=== PATIENT | male | born 1980 | race Caucasian/White ===

== ENCOUNTER 2021-09-25 14:20 | Inpatient (IN) | payer OTHER ==
[2021-09-25] VITALS (200 sets, daily range): BP systolic 97–116; BP diastolic 58–69; PULSE 90–105; TEMP 36.4; O2SAT 72–100
[~2021-09-25] VITALS: Ht 172.7 cm; Wt 89.0 kg
[2021-09-25 14:43] LABS: HEMATOCRIT 49.9 % (42.0-52.0); HEMOGLOBIN 16.7 g/dl (13.5-18.0); MEAN CELL VOLUME 95 fl (80.0-100.0); MEAN CORPUSCULAR HEMOGLOBIN 32 pg (27-31); MEAN CORPUSCULAR HGB CONC 34 g/dl (33.0-37.0); MEAN PLATELET VOLUME 11.3 fl (7.4-10.4); PLATELET COUNT 240 K/mm3 (130-400); RED BLOOD COUNT 5.28 M/mm3 (4.20-5.60); REDCELL DISTRIBUTION WIDTH-CV 11.7 % (11.5-14.5)
[2021-09-25 15:05] LABS: BAND 5 % (0-10); LYMPHOCYTE 9 % (20.0-51.0); NEUTROPHILS 78 % (42.0-75.2)
[2021-09-25 15:08] LABS: COLLECTION METHOD CLEAN CATCH
[2021-09-25 15:08] LABS: PLATELET ESTIMATE NORMAL (NORMAL)
[2021-09-25 15:14] LABS: MUCOUS Present (NOT PRESENT); PH 5 (5-8); SQUAMOUS EPITHELIAL 0-2 /hpf (0-10); URINE APPEARANCE Hazy (CLEAR/HAZY); URINE BACTERIA None Seen (NONE SEEN); URINE BILIRUBIN Negative (NEGATIVE); URINE BLOOD 2+ (NEGATIVE); URINE COLOR Yellow (YELLOW); URINE GLUCOSE 3+ (NEGATIVE); URINE KETONE 2+ (NEGATIVE); URINE LEUKOCYTE ESTERASE Negative (NEGATIVE); URINE NITRATE Negative (NEGATIVE); URINE PROTEIN(semi-quant) 2+ (NEGATIVE); URINE RBC 0-2 /hpf (0-2); URINE UROBILINOGEN Negative (NEGATIVE)
[2021-09-25 15:22] LABS: TRICYCLIC ANTIDEPRESS URINE NEGATIVE
[2021-09-25 15:59] LABS: ALANINE AMINOTRANSFERASE 57 U/L (0-55); ALBUMIN 2.7 gm/dL (3.5-5.0); ALKALINE PHOSPHATASE 55 U/L (40-150); AST,SGOT 26 U/L (5-34); BILIRUBIN,TOTAL 0.2 mg/dL (0.2-1.2); BLOOD UREA NITROGEN 38 mg/dL (9-21); CHLORIDE 103 mmol/L (98-107); CREATINE KINASE 33 U/L (30-200); CREATININE, serum 2.81 mg/dL (0.72-1.25); LIPASE 350 U/L (8-78); SODIUM 133 mmol/L (136-145); TOTAL PROTEIN 6.3 gm/dL (6.2-8.1)
[2021-09-25 16:03] LABS: CARBON DIOXIDE < 5 mmol/L (22-29); GLUCOSE 786 mg/dL (70-99); POTASSIUM 5.9 mmol/L (3.5-4.5)
[2021-09-25 16:19] LABS: TROPONIN-I 0.011 ng/mL (0.00-0.033); TSH w REFLEX 1.014 uIU/mL (0.350-4.940)
--- NOTE | 2021-09-25 17:08 | NUR ---
BG MEASURED AT 515 UPON ARRIVAL. INSULIN GTT PLACED ON HOLD D/T 200 POINT DROP IN 45 MINUTES. WILL RECHECK BG IN 30 MINUTES
[2021-09-25 17:17] LABS: MAGNESIUM 2.8 mg/dL (1.6-2.6); PHOSPHOROUS 5.8 mg/dL (2.3-4.7)
[2021-09-25 17:50] LABS: ARTERIAL BLD GAS O2 SATURATION 96.7 % (92-100); ARTERIAL BLD GAS TCO2 CT 3.2; ARTERIAL BLOOD GAS HCO3 2.7 meq/L (22-26); ARTERIAL BLOOD GAS PO2 90.2 mmHg (80-100); ARTERIAL BLOOD GAS pH 6.85 (7.35-7.45)
[2021-09-25 19:31] LABS: BLOOD UREA NITROGEN 41 mg/dL (9-21); CALCIUM 7.5 mg/dL (8.4-10.2); CHLORIDE 109 mmol/L (98-107); POTASSIUM 5.7 mmol/L (3.5-4.5); SODIUM 135 mmol/L (136-145)
[2021-09-25 19:43] LABS: GLUCOSE 586 mg/dL (70-99)
[2021-09-25 19:44] LABS: CARBON DIOXIDE < 5 mmol/L (22-29); CREATININE, serum 2.92 mg/dL (0.72-1.25)
[2021-09-25 19:45] LABS: ANION GAP 24 mmol/L (7-16)
[2021-09-25 21:53] LABS: BLOOD UREA NITROGEN 46 mg/dL (9-21); CALCIUM 8.1 mg/dL (8.4-10.2); CHLORIDE 111 mmol/L (98-107); CREATININE, serum 3.09 mg/dL (0.72-1.25); POTASSIUM 5.3 mmol/L (3.5-4.5); SODIUM 136 mmol/L (136-145)
[2021-09-25 21:56] LABS: CARBON DIOXIDE < 5 mmol/L (22-29); GLUCOSE 490 mg/dL (70-99)
[2021-09-25 22:49] LABS: ARTERIAL BLOOD GAS pH 6.99 (7.35-7.45)
[2021-09-25 22:50] LABS: ARTERIAL BLD GAS O2 SATURATION 95.5 % (92-100); ARTERIAL BLD GAS TCO2 CT 4.3; ARTERIAL BLOOD GAS BASE EXCESS -26.1 (-2-2); ARTERIAL BLOOD GAS HCO3 3.8 meq/L (22-26); ARTERIAL BLOOD GAS PCO2 16.4 mmHg (35-45); ARTERIAL BLOOD GAS PO2 74.2 mmHg (80-100)
[2021-09-25 23:13] LABS: BLOOD UREA NITROGEN 45 mg/dL (9-21); CALCIUM 7.5 mg/dL (8.4-10.2); CHLORIDE 112 mmol/L (98-107); CREATININE, serum 3.13 mg/dL (0.72-1.25); POTASSIUM 4.8 mmol/L (3.5-4.5); SODIUM 137 mmol/L (136-145)
[2021-09-25 23:15] LABS: CARBON DIOXIDE < 5 mmol/L (22-29); GLUCOSE 428 mg/dL (70-99)
[2021-09-26] VITALS (657 sets, daily range): BP systolic 104–165; BP diastolic 60–107; PULSE 96–134; TEMP 37.7; O2SAT 79–99
[2021-09-26 01:22] LABS: CALCIUM 8.2 mg/dL (8.4-10.2); CREATININE, serum 3.16 mg/dL (0.72-1.25); POTASSIUM 4.3 mmol/L (3.5-4.5)
[2021-09-26] MEDS ORDERED: GLUCOPHAGE500 MG/TAB PO (02:07)
[2021-09-26 03:26] LABS: CALCIUM 8.4 mg/dL (8.4-10.2); CREATININE, serum 2.94 mg/dL (0.72-1.25); POTASSIUM 3.9 mmol/L (3.5-4.5)
[2021-09-26 04:17] LABS: ARTERIAL BLD GAS O2 SATURATION 93.9 % (92-100); ARTERIAL BLD GAS TCO2 CT 7.6; ARTERIAL BLOOD GAS BASE EXCESS -19.1 (-2-2)
[2021-09-26 04:23] LABS: ARTERIAL BLOOD GAS pH 7.18 (7.35-7.45)
[2021-09-26 05:00] LABS: BASO % 0.1 % (0.0-2.0); GRAN # 5.7 K/mm3 (1.4-6.5); GRAN % 74.9 % (42.2-75.2); HEMATOCRIT 39.7 % (42.0-52.0); LYMPH # 0.9 K/mm3 (1.2-3.4); LYMPH % 11.2 % (20.0-51.0); MEAN CELL VOLUME 89 fl (80.0-100.0); MEAN CORPUSCULAR HEMOGLOBIN 31 pg (27-31); MEAN CORPUSCULAR HGB CONC 35 g/dl (33.0-37.0); MEAN PLATELET VOLUME 10.3 fl (7.4-10.4); MONO # 0.9 K/mm3 (0.1-0.6); MONO % 12.4 % (1.7-9.3); PLATELET COUNT 155 K/mm3 (130-400); RED BLOOD COUNT 4.45 M/mm3 (4.20-5.60); REDCELL DISTRIBUTION WIDTH-CV 11.7 % (11.5-14.5)
[2021-09-26 05:19] LABS: ALBUMIN 2.6 gm/dL (3.5-5.0); BILIRUBIN,TOTAL 0.2 mg/dL (0.2-1.2); CALCIUM 8.2 mg/dL (8.4-10.2); CREATININE, serum 2.78 mg/dL (0.72-1.25); POTASSIUM 3.4 mmol/L (3.5-4.5); TOTAL PROTEIN 5.8 gm/dL (6.2-8.1)
--- NOTE | 2021-09-26 07:00 | NUR ---
PT became very aggitated and started to get out of bed, pulling at his catheter and screaming. Licha was called and orders for Precedex was placed. reorientation to ICU was not successful.
[2021-09-26 07:46] LABS: ANION GAP 19 mmol/L (7-16); BLOOD UREA NITROGEN 42 mg/dL (9-21); CALCIUM 7.9 mg/dL (8.4-10.2); CHLORIDE 115 mmol/L (98-107); CREATININE, serum 2.51 mg/dL (0.72-1.25); GLUCOSE 144 mg/dL (70-99); MAGNESIUM 1.8 mg/dL (1.6-2.6); POTASSIUM 3.3 mmol/L (3.5-4.5); SODIUM 143 mmol/L (136-145)
--- NOTE | 2021-09-26 08:00 | NUR ---
PT is resting on his right side, calm and easy to arouse. When woken, the pt starts to moan and pull arms away when trying to reach for lines to give meds. Pt is unable to answer questions and states " press snooze on my alarm clock".
[2021-09-26 08:07] LABS: CARBON DIOXIDE 9 mmol/L (22-29); PHOSPHOROUS < 0.7 mg/dL (2.3-4.7)
--- NOTE | 2021-09-26 09:28 | NUR ---
The patient has altered mental status and is wearing mits. JULIA contacted the patient's father, Zia (ph#[phone]), to complete intake. The patient lives alone in [place]. 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 Zia reports that the patient is independent with ADLs and does not have any DME. He is unsure if the patient has a PCP and he does not think the patient has a DPOA-HC. He reports that the patient is not and that the patient has four children, one of them is over the age 18 and that is Xavier So. Zia provided JULIA with Xavier's phone number [phone]. JULIA informed Zia how Xavier would be the patient's legal next of kin. Zia verbalized understanding. He would still like to be kept updated while the patient is here. Zia reports that the patient's mother, Frida (ph#[phone]), is also still alive. JULIA attempted to contact Xavier. JULIA left him a voicemail. JULIA to continue to monitor.
[2021-09-26 09:46] LABS: CALCIUM 8.4 mg/dL (8.4-10.2); CREATININE, serum 2.52 mg/dL (0.72-1.25); POTASSIUM 3.4 mmol/L (3.5-4.5)
--- NOTE | 2021-09-26 11:07 | NUR ---
Patients mother and step father here to visit with nursing staff. They just needed to see a face. Questions answered the best to my ability. I did recommend that they call the primary nurse to answer the more techincal information. At this time his numbers were good and that Dr. Stewart was managing both his DKA and COVID. They requested and recieved his belongings. This included a pair of jeans with cell phone and wallet; socks and underware. Family took these belongings home with them. They did state that his sister is a Type I diabetic and that he was a Type II but not well managed. He only took his meds when he felt like it. According to mother he is stubborn and did not follow up with the doctor. His primary MD was Dr. Brett Bhagat and he has not had a primary since Dr. Bhagat. Will pass this information on to his primary nurse. No other questions at this time
[2021-09-26 12:29] LABS: ANION GAP 17 mmol/L (7-16); BLOOD UREA NITROGEN 41 mg/dL (9-21); CALCIUM 8.2 mg/dL (8.4-10.2); CHLORIDE 116 mmol/L (98-107); CREATININE, serum 2.34 mg/dL (0.72-1.25); GLUCOSE 151 mg/dL (70-99); POTASSIUM 3.1 mmol/L (3.5-4.5); SODIUM 142 mmol/L (136-145)
[2021-09-26 12:35] LABS: PHOSPHOROUS < 0.7 mg/dL (2.3-4.7)
[2021-09-26 12:37] LABS: CARBON DIOXIDE 9 mmol/L (22-29)
--- NOTE | 2021-09-26 15:00 | NUR ---
Recieved call from pt mother, tyson Leung states that the pt is a heavy drinker. No known HX of drinking for this pt. Hospitalist was notified and started CIWA scoring on pt hourly.
[2021-09-26 16:26] LABS: CALCIUM 8.3 mg/dL (8.4-10.2); CREATININE, serum 2.11 mg/dL (0.72-1.25); POTASSIUM 3.2 mmol/L (3.5-4.5)
[2021-09-26 21:19] LABS: CALCIUM 8.3 mg/dL (8.4-10.2); CREATININE, serum 1.84 mg/dL (0.72-1.25)
[2021-09-26 21:23] LABS: POTASSIUM 2.9 mmol/L (3.5-4.5)
--- NOTE | 2021-09-26 22:30 | NUR ---
FSBS 115, PER KISHA ANGELES DECREASE INSULIN DRIP TO 1 UN/HR, CONTINUE Q1HR FS.
[2021-09-27] VITALS (678 sets, daily range): BP systolic 65–134; BP diastolic 42–82; PULSE 76–107; TEMP 97.7–99.5; O2SAT 78–100
[2021-09-27 00:49] LABS: CALCIUM 8.5 mg/dL (8.4-10.2); CREATININE, serum 1.78 mg/dL (0.72-1.25); POTASSIUM 3.6 mmol/L (3.5-4.5)
[2021-09-27 04:48] LABS: ANION GAP 12 mmol/L (7-16); BLOOD UREA NITROGEN 37 mg/dL (9-21); CALCIUM 8.2 mg/dL (8.4-10.2); CHLORIDE 118 mmol/L (98-107); CREATININE, serum 1.65 mg/dL (0.72-1.25); GLUCOSE 175 mg/dL (70-99); MAGNESIUM 2.1 mg/dL (1.6-2.6); POTASSIUM 3.6 mmol/L (3.5-4.5); SODIUM 144 mmol/L (136-145)
[2021-09-27 04:51] LABS: CARBON DIOXIDE 14 mmol/L (22-29); PHOSPHOROUS < 0.7 mg/dL (2.3-4.7)
[2021-09-27 04:53] LABS: HEMOGLOBIN 12.2 g/dl (13.5-18.0); MEAN CELL VOLUME 88 fl (80.0-100.0); MEAN CORPUSCULAR HEMOGLOBIN 32 pg (27-31); MEAN CORPUSCULAR HGB CONC 36 g/dl (33.0-37.0); MEAN PLATELET VOLUME 10.6 fl (7.4-10.4); PLATELET COUNT 154 K/mm3 (130-400); RED BLOOD COUNT 3.86 M/mm3 (4.20-5.60); REDCELL DISTRIBUTION WIDTH-CV 12.3 % (11.5-14.5)
[2021-09-27 05:35] LABS: ANISOCYTOSIS 1+; BAND 15 % (0-10); EOSINOPHIL 1 % (0-4); LYMPHOCYTE 7 % (20.0-51.0); NEUTROPHILS 64 % (42.0-75.2)
--- NOTE | 2021-09-27 06:53 | NUR ---
PRECEDEX ON STANDBY FOR LOW BP.
--- NOTE | 2021-09-27 07:39 | NUR ---
CALL TO TELE ICU FOR PT'S SBP UNDER 90 FOR THE LAST HOUR. ORDER RECEIVED FOR 500ML NS BOLUS. INITIATED.
--- NOTE | 2021-09-27 08:00 | NUR ---
Parveen becomes very confused and tries to exit his bed stating " I have to go" while pulling at lines and tubes. Reorientation to ICU is unseccessful and Ativan is needed to keep him calm.
--- NOTE | 2021-09-27 11:00 | NUR ---
Dr. Stewart put in orders for intubation due to right lung Covid pneumonia and aspiration pneumonia. AA bedside, Prop, fent, and succinycholine administered for sedation. 1114 Time out: Confirmed PT by name on wrist band and procedure is intubation with ART line placment 1114 pre oxygenation 1116 Intubation was uneventful, one attempt. ETT 8.0 24 Teeth and secured with commercial device. VSS- 122/63 98% ON 50% FIO2, RR 24, P8, TV 500 PT started on maintenance meds PROP and FENT. 1150 XRAY read by Manuel and ETT placement good.
[2021-09-27 12:46] LABS: ARTERIAL BLD GAS TCO2 CT 17.2; ARTERIAL BLOOD GAS BASE EXCESS -10.5 (-2-2); ARTERIAL BLOOD GAS HCO3 16.1 meq/L (22-26); ARTERIAL BLOOD GAS PCO2 38.1 mmHg (35-45); ARTERIAL BLOOD GAS pH 7.24 (7.35-7.45)
[2021-09-27 12:48] LABS: ARTERIAL BLOOD GAS PO2 227.8 mmHg (80-100)
[2021-09-27 13:42] LABS: CALCIUM 7.4 mg/dL (8.4-10.2); CREATININE, serum 1.32 mg/dL (0.72-1.25)
[2021-09-27 16:33] LABS: CREATININE, serum 1.2 mg/dL (0.72-1.25)
--- NOTE | 2021-09-27 16:37 | NUR ---
Patient has been intubated. JULIA contacted patient's father, Zia who advised he has been keeping patient's son, Xavier updated but isn't sure if Xavier is aware patient is intubated. Zia verbalized understanding that Xavier is legal next of kin and would be a decision maker for patient. JULIA then contacted patient's son Xavier to provide update. Xavier verbalized understanding that he is legal next of kin for patient and would be a decision maker for patient if patient is unable to make his own medical decisions.
--- NOTE | 2021-09-27 17:00 | NUR ---
NO SEDATION VACATION DUE TO AMS, HYPOTENSION.
[2021-09-27 17:53] LABS: ARTERIAL BLD GAS O2 SATURATION 98.7 % (92-100); ARTERIAL BLD GAS TCO2 CT 13.7; ARTERIAL BLOOD GAS BASE EXCESS -11.2 (-2-2); ARTERIAL BLOOD GAS HCO3 12.9 meq/L (22-26); ARTERIAL BLOOD GAS PCO2 24.9 mmHg (35-45); ARTERIAL BLOOD GAS pH 7.33 (7.35-7.45)
[2021-09-27 17:54] LABS: ARTERIAL BLOOD GAS PO2 132.6 mmHg (80-100)
[2021-09-27 20:43] LABS: CALCIUM 6.8 mg/dL (8.4-10.2); CREATININE, serum 1.15 mg/dL (0.72-1.25); POTASSIUM 4.2 mmol/L (3.5-4.5)
[2021-09-28] VITALS (653 sets, daily range): BP systolic 86–153; BP diastolic 63–95; PULSE 81–110; TEMP 98.8–99.5; O2SAT 76–100
[2021-09-28 05:26] LABS: GRAN # 4.5 K/mm3 (1.4-6.5); HEMOGLOBIN 11.8 g/dl (13.5-18.0); LYMPH # 0.6 K/mm3 (1.2-3.4); LYMPH % 9.3 % (20.0-51.0); MEAN CELL VOLUME 90 fl (80.0-100.0); MEAN CORPUSCULAR HEMOGLOBIN 32 pg (27-31); MEAN CORPUSCULAR HGB CONC 35 g/dl (33.0-37.0); MEAN PLATELET VOLUME 10.6 fl (7.4-10.4); MONO # 0.9 K/mm3 (0.1-0.6); MONO % 15.2 % (1.7-9.3); PLATELET COUNT 160 K/mm3 (130-400); RED BLOOD COUNT 3.72 M/mm3 (4.20-5.60); REDCELL DISTRIBUTION WIDTH-CV 13.2 % (11.5-14.5)
[2021-09-28 05:30] LABS: HEMATOCRIT 33.5 % (42.0-52.0)
[2021-09-28 05:47] LABS: CALCIUM 7.1 mg/dL (8.4-10.2); CREATININE, serum 1.04 mg/dL (0.72-1.25); MAGNESIUM 1.9 mg/dL (1.6-2.6); PHOSPHOROUS 1.9 mg/dL (2.3-4.7); POTASSIUM 3.5 mmol/L (3.5-4.5)
[2021-09-28 06:16] LABS: ARTERIAL BLD GAS O2 SATURATION 99.1 % (92-100); ARTERIAL BLD GAS TCO2 CT 12.3; ARTERIAL BLOOD GAS BASE EXCESS -12.6 (-2-2); ARTERIAL BLOOD GAS HCO3 11.6 meq/L (22-26); ARTERIAL BLOOD GAS pH 7.32 (7.35-7.45)
[2021-09-28 07:05] LABS: ARTERIAL BLOOD GAS PO2 198.7 mmHg (80-100)
--- NOTE | 2021-09-28 07:30 | NUR ---
REPORT RECEIVED FROM FERNANDO CARLSON. PATIENT RESTING SEDATED IN BED ON THE VENT. ALL LINES, TUBES, GTTS AND VENT SETTINGS REVIEWED.
--- NOTE | 2021-09-28 07:32 | NUR ---
PT HAS NOT BEEN INTUBATED FOR MORE THAN 24 HOURS THEREFORE NO WEAN TRIAL HAS BEEN DONE.
--- NOTE | 2021-09-28 20:55 | NUR ---
This RN at patient's bedside performing 2000 assessment and evening bath. Patient tolerated bath well; all vitals were within normal limits. Just prior to RN exiting room, patient noted to be exhibiting seizure activity for approximately 15-20 seconds at a time, three episodes noted within a 10 minute period. This activity was also witnessed by FERNANDO Poe. [facility] physician, Dr. Werner was notified. BG obtained, with result of 159. Orders received to administer 1MG IV ativan now. Ativan administered. As of 2257, no further seizure activity has been observed. Patient is resting quietly in bed with eyes closed. Tolerating ventilator well. All vitals within normal limits.
[2021-09-28 21:26] LABS: ARTERIAL BLD GAS O2 SATURATION 93.3 % (92-100); ARTERIAL BLD GAS TCO2 CT 16.7; ARTERIAL BLOOD GAS BASE EXCESS -8.4 (-2-2); ARTERIAL BLOOD GAS HCO3 15.8 meq/L (22-26); ARTERIAL BLOOD GAS PO2 61.8 mmHg (80-100); ARTERIAL BLOOD GAS pH 7.35 (7.35-7.45)
[2021-09-28 22:07] LABS: CALCIUM 7.3 mg/dL (8.4-10.2); CREATININE, serum 0.9 mg/dL (0.72-1.25); POTASSIUM 4.2 mmol/L (3.5-4.5)
[2021-09-29] VITALS (682 sets, daily range): BP systolic 79–142; BP diastolic 46–99; PULSE 79–92; TEMP 98.4–98.9; O2SAT 95–100
[2021-09-29 04:11] LABS: ARTERIAL BLD GAS O2 SATURATION 96.6 % (92-100); ARTERIAL BLD GAS TCO2 CT 17.2; ARTERIAL BLOOD GAS BASE EXCESS -7.5 (-2-2); ARTERIAL BLOOD GAS HCO3 16.3 meq/L (22-26); ARTERIAL BLOOD GAS PO2 82.7 mmHg (80-100); ARTERIAL BLOOD GAS pH 7.37 (7.35-7.45)
[2021-09-29 05:18] LABS: HEMOGLOBIN 10.9 g/dl (13.5-18.0); MEAN CELL VOLUME 92 fl (80.0-100.0); MEAN CORPUSCULAR HEMOGLOBIN 31 pg (27-31); MEAN CORPUSCULAR HGB CONC 33 g/dl (33.0-37.0); MEAN PLATELET VOLUME 10.7 fl (7.4-10.4); PLATELET COUNT 155 K/mm3 (130-400); RED BLOOD COUNT 3.55 M/mm3 (4.20-5.60); REDCELL DISTRIBUTION WIDTH-CV 13.2 % (11.5-14.5)
[2021-09-29 05:23] LABS: HEMATOCRIT 32.6 % (42.0-52.0)
[2021-09-29 05:31] LABS: CALCIUM 7.3 mg/dL (8.4-10.2); CREATININE, serum 0.88 mg/dL (0.72-1.25); POTASSIUM 3.8 mmol/L (3.5-4.5)
--- NOTE | 2021-09-29 18:15 | NUR ---
PT TO STAY FAIRLY SEDATED IN ORDER TO DECREASE SEIZURE THRESH-HOLD PER DR. FRENCH. PT DOES OPEN EYES SPONTANEOUSLY AND WITHDRAW TO PAIN.
--- NOTE | 2021-09-29 20:09 | NUR ---
SON, RYNE AND RYNE'S MOM, CALL FOR UPDATE AT THIS TIME. AN EXTENSIVE CONVERSATION WAS HAD ABOUT THE PATIENT'S CONDITION AND TREATMENT PLAN WAS HAD. THE SON WAS GIVEN ALL INFORMATION ABOUT WHAT WAS BEING DONE TO TREAT THE DKA AND RESPIRATORY CONCERNS WHICH GOT HIM PLACED ON THE VENTILATOR. THEY ARE ADAMENT THAT THE PATIENT DOES NOT DRINK ALCOHOL REGULARLY AND ALCOHOL WITHDRAWAL SIMPLY DOES NOT MAKE SENSE FOR THIS PATIENT'S SITUATION. THEY HAD MANY QUESTIONS AND I DID MY BEST TO ANSWER THEM. THEY REQUEST A FAMILY MEETING TOMORROW MORNING WITH DR. FRENCH. THIS IS SET UP FOR [address] FRENCH IS NOTIFIED AND OK WITH THIS PLAN. DR. FRENCH ALSO REQUESTS THE HOSPITALIST TO BE A PART OF THIS MEETING WELL.
--- NOTE | 2021-09-29 20:25 | NUR ---
RYNE CARRILLO, SON, PHONE NUMBER IS [phone]
[2021-09-30] VITALS (773 sets, daily range): BP systolic 91–133; BP diastolic 46–68; PULSE 60–97; TEMP 98.2–99; O2SAT 85–100
[2021-09-30 05:04] LABS: BASO % 0.2 % (0.0-2.0); GRAN # 3.2 K/mm3 (1.4-6.5); GRAN % 59.1 % (42.2-75.2); HEMOGLOBIN 10.8 g/dl (13.5-18.0); LYMPH # 1.1 K/mm3 (1.2-3.4); LYMPH % 19.7 % (20.0-51.0); MEAN CELL VOLUME 95 fl (80.0-100.0); MEAN CORPUSCULAR HEMOGLOBIN 31 pg (27-31); MEAN CORPUSCULAR HGB CONC 33 g/dl (33.0-37.0); MEAN PLATELET VOLUME 10.9 fl (7.4-10.4); MONO # 1.1 K/mm3 (0.1-0.6); MONO % 19.7 % (1.7-9.3); PLATELET COUNT 157 K/mm3 (130-400); RED BLOOD COUNT 3.48 M/mm3 (4.20-5.60); REDCELL DISTRIBUTION WIDTH-CV 13.1 % (11.5-14.5)
--- NOTE | 2021-09-30 05:31 | NUR ---
SEDATION NOT DECREASED AT THIS TIME, PT RASS SCORE 0.
[2021-09-30 05:32] LABS: ALBUMIN 2.1 gm/dL (3.5-5.0); BILIRUBIN,TOTAL 0.4 mg/dL (0.2-1.2); CALCIUM 7.7 mg/dL (8.4-10.2); CREATININE, serum 0.82 mg/dL (0.72-1.25); PHOSPHOROUS 2.6 mg/dL (2.3-4.7); POTASSIUM 3.8 mmol/L (3.5-4.5); TOTAL PROTEIN 4.6 gm/dL (6.2-8.1)
--- NOTE | 2021-09-30 10:19 | NUR ---
Family meeting held with the patient's son Dov, Xavier's mother and ex life partner of the patient. Patient's condition discussed at length with the family. Per physician, overall prognosis is good. Discussed the challenges of not having nurology in house for several weeks, and the available beds at surrounding facilities. [place] option would be to transfer the patient to a facility that has nuro in house, but with the patient being covid+ and uninsured the chance of transfer is low. Family verbalizes their understanding of this. Physician reports that he will start communication with other facilities in the area to see about transfer. At this point, the family would like all possible measures and testing available to be done.
--- NOTE | 2021-09-30 12:11 | NUR ---
Tube Carrier, RN and Box Stacker, called [employer] and created request for patient transfer; per [facility] [employer] rep, the request is complete and the Box Stacker's phone was given as the callback number. Per rep, at this time there are no [place] [facility] with [facility] N[facility], [facility] Primary RN updated; verbalized to RN to update MD team.
[2021-09-30 15:37] LABS: TOTAL PROTEIN,CSF 71 mg/dL (15-45)
--- NOTE | 2021-09-30 16:02 | NUR ---
1419: DARRON Arora, ThangRT and I present for bedside lumbar puncture. Consent obtained by MD Terry and MD Lakshmi from pt's son and mother this morning during family/physican meeting 1420: timeout completed 1425: procedure end time 1426: pt place back in prone position, pt tolerated procedure well, baindaid applied to puncture site Collection tubes correctly labeled in numerical order and delivered to lab
[2021-09-30 17:29] LABS: CSF APPEARANCE CLEAR; CSF COLOR COLORLESS; CSF MONONUCLEAR 100 % (70-100); CSF POLYMORPHONUCLEAR 0 % (0-6); CSF RBC < 1 /mm3 (0-0)
--- NOTE | 2021-09-30 19:00 | NUR ---
Received report from FERNANDO Romero.
[2021-09-30 19:09] LABS: ARTERIAL BLD GAS O2 SATURATION 95.8 % (92-100); ARTERIAL BLD GAS TCO2 CT 22.5; ARTERIAL BLOOD GAS BASE EXCESS -2.9 (-2-2); ARTERIAL BLOOD GAS HCO3 21.4 meq/L (22-26); ARTERIAL BLOOD GAS PCO2 36.2 mmHg (35-45); ARTERIAL BLOOD GAS PO2 75.8 mmHg (80-100); ARTERIAL BLOOD GAS pH 7.39 (7.35-7.45)
--- NOTE | 2021-09-30 21:00 | NUR ---
Patient resting quietly in bed with eyes closed. Remains on ventilator; tolerating well. All vitals within normal limits. Continues to receive tube feeds along with fentanyl, propofol, and levophed drips. Arouses somewhat to speech although he does not follow verbal commands. Bed in lowest position, call light within in reach, all alarms on. No further needs noted.
[2021-10-01] VITALS (181 sets, daily range): BP systolic 90–121; BP diastolic 45–81; PULSE 57–79; TEMP 98.6–100; O2SAT 93–99
[2021-10-01 03:45] LABS: ARTERIAL BLD GAS TCO2 CT 26.1; ARTERIAL BLOOD GAS HCO3 24.8 meq/L (22-26); ARTERIAL BLOOD GAS PCO2 41.1 mmHg (35-45); ARTERIAL BLOOD GAS PO2 76.6 mmHg (80-100)
[2021-10-01 07:25] LABS: HEMOGLOBIN 10.3 g/dl (13.5-18.0); MEAN CELL VOLUME 95 fl (80.0-100.0); MEAN CORPUSCULAR HEMOGLOBIN 31 pg (27-31); MEAN CORPUSCULAR HGB CONC 33 g/dl (33.0-37.0); PLATELET COUNT 168 K/mm3 (130-400); RED BLOOD COUNT 3.28 M/mm3 (4.20-5.60); REDCELL DISTRIBUTION WIDTH-CV 12.9 % (11.5-14.5)
[2021-10-01 07:30] LABS: CALCIUM 7.6 mg/dL (8.4-10.2); CREATININE, serum 0.75 mg/dL (0.72-1.25); POTASSIUM 3.8 mmol/L (3.5-4.5)
[2021-10-01 07:34] LABS: HEMATOCRIT 31.3 % (42.0-52.0)
--- NOTE | 2021-10-01 08:20 | NUR ---
Sedation reduced by half for neuro assessment: pt opening eyes, does not withdraw hand or toes from painful stimuli but does grimmace, pt not able to track or make eye contact. Heart rate and blood pressure elevating, sedation resumed at previous rate per MD Terry
[2021-10-01 08:56] LABS: C-REACTIVE PROTEIN 9.45 mg/dL (0.00-0.50)
[2021-10-01 09:02] LABS: BAND 13 % (0-10); LYMPHOCYTE 29 % (20.0-51.0); METAMYELOCYTE 2 % (0-0); NEUTROPHILS 43 % (42.0-75.2)
[2021-10-01 09:03] LABS: PLATELET ESTIMATE NORMAL (NORMAL)
--- NOTE | 2021-10-01 17:00 | NUR ---
Right Radial Arterial Line removed, hemostasis achieved after manual pressure applied for 5min. Gauze and tape applied, site remains stable
--- NOTE | 2021-10-01 21:00 | NUR ---
Patient resting quietly in bed. Opens eyes to speech but does not track movements or follow verbal commands. All vitals within normal limits.
[2021-10-02] VITALS: BP 124/81; PULSE 93; TEMP 98.8
[2021-10-02 03:44] LABS: ARTERIAL BLD GAS O2 SATURATION 96.3 % (92-100); ARTERIAL BLD GAS TCO2 CT 27.2; ARTERIAL BLOOD GAS BASE EXCESS 1.8 (-2-2); ARTERIAL BLOOD GAS PCO2 39.1 mmHg (35-45); ARTERIAL BLOOD GAS PO2 82.2 mmHg (80-100); ARTERIAL BLOOD GAS pH 7.44 (7.35-7.45)
[2021-10-02 04:00] VITALS: BP 93/55; PULSE 77; TEMP 99.1
[2021-10-02 05:25] LABS: MEAN CELL VOLUME 97 fl (80.0-100.0); MEAN CORPUSCULAR HGB CONC 32 g/dl (33.0-37.0); MEAN PLATELET VOLUME 11.3 fl (7.4-10.4); PLATELET COUNT 185 K/mm3 (130-400); RED BLOOD COUNT 3.05 M/mm3 (4.20-5.60); REDCELL DISTRIBUTION WIDTH-CV 12.7 % (11.5-14.5)
[2021-10-02 05:27] VITALS: BP 87/54
[2021-10-02 05:32] LABS: HEMATOCRIT 29.7 % (42.0-52.0); HEMOGLOBIN 9.6 g/dl (13.5-18.0); MEAN CORPUSCULAR HEMOGLOBIN 31 pg (27-31)
[2021-10-02 06:35] LABS: CALCIUM 7.7 mg/dL (8.4-10.2); CREATININE, serum 0.74 mg/dL (0.72-1.25); POTASSIUM 3.9 mmol/L (3.5-4.5)
[2021-10-02 06:48] LABS: LYMPHOCYTE 27 % (20.0-51.0); METAMYELOCYTE 1 % (0-0); MYELOCYTE 1 % (0-0); NEUTROPHILS 51 % (42.0-75.2)
[2021-10-02 06:49] LABS: PLATELET ESTIMATE NORMAL (NORMAL)
--- NOTE | 2021-10-02 07:10 | NUR ---
Report given to FERNANDO Romero.
[2021-10-02 12:00] VITALS: BP 100/65; PULSE 77; TEMP 99.8
--- NOTE | 2021-10-02 13:30 | NUR ---
Pt's family requesting pt be placed on Pulmocort nebulizers, MD Terry notified and OK with adding that. RT Nely called and notified of new order
[2021-10-02 16:00] VITALS: BP 114/72; PULSE 98; TEMP 99.5
--- NOTE | 2021-10-02 16:05 | NUR ---
Patient still intubated at this time. No new events or concerns from critical care doctor. [place] [facility] still unable to find an open bed in the state with neurology.
[2021-10-02 20:00] VITALS: BP 120/75; PULSE 100; TEMP 99.5
[2021-10-03] VITALS (632 sets, daily range): BP systolic 98–140; BP diastolic 62–91; PULSE 79–101; TEMP 98.7–99.3; O2SAT 67–100
[2021-10-03 05:31] LABS: HEMOGLOBIN 10.1 g/dl (13.5-18.0); MEAN CELL VOLUME 97 fl (80.0-100.0); MEAN CORPUSCULAR HEMOGLOBIN 32 pg (27-31); MEAN CORPUSCULAR HGB CONC 33 g/dl (33.0-37.0); MEAN PLATELET VOLUME 10.9 fl (7.4-10.4); PLATELET COUNT 216 K/mm3 (130-400); RED BLOOD COUNT 3.21 M/mm3 (4.20-5.60); REDCELL DISTRIBUTION WIDTH-CV 12.3 % (11.5-14.5)
[2021-10-03 05:43] LABS: C-REACTIVE PROTEIN 10.76 mg/dL (0.00-0.50); CALCIUM 7.9 mg/dL (8.4-10.2); CREATININE, serum 0.75 mg/dL (0.72-1.25); POTASSIUM 3.9 mmol/L (3.5-4.5)
--- NOTE | 2021-10-03 05:56 | NUR ---
AT CURRENT SEDATION, PT OPENS EYES SPONTANEOUSLY WHEN STAFF COMES INTO ROOM. FOLLOWS COMMANDS. ABLE TO SHAKE HEAD YES OR NO FOR QUESTIONS. SEDATION CONITNUED AT DOCUMENTED IN TITRATION RECORD.
[2021-10-03 06:11] LABS: ARTERIAL BLD GAS O2 SATURATION 97.4 % (92-100); ARTERIAL BLD GAS TCO2 CT 31.9; ARTERIAL BLOOD GAS BASE EXCESS 6.3 (-2-2); ARTERIAL BLOOD GAS HCO3 30.6 meq/L (22-26); ARTERIAL BLOOD GAS PCO2 42.4 mmHg (35-45); ARTERIAL BLOOD GAS PO2 95.2 mmHg (80-100); ARTERIAL BLOOD GAS pH 7.48 (7.35-7.45)
[2021-10-03 06:22] LABS: BAND 3 % (0-10); LYMPHOCYTE 26 % (20.0-51.0); METAMYELOCYTE 1 % (0-0); NEUTROPHILS 60 % (42.0-75.2); PLATELET ESTIMATE NORMAL (NORMAL)
--- NOTE | 2021-10-03 09:20 | NUR ---
Pt awake, alert, following all commands, orientation provided. Ventilator weaning trial education provided MD Terry placed pt on weaning trial at 0920
--- NOTE | 2021-10-03 10:40 | NUR ---
Pt self extubated during weaning trial - MD Terry, Nely,RT and myself outside room during event. While donning PPE pt SpO2 remained > 94%, upon entering room, pt made eye contacted and said "Im sorry I pulled that out". Pt smiling stating "That feels a lot better". Pt placed on 5L/min Oxymask. Oral care provided. Pt educated on all lines and tubes and instructed not to pull at anymore tubes - pt verbally agrees.
--- NOTE | 2021-10-03 12:10 | NUR ---
PT SELF EXTUBATED @ 1035. PT IS NOT IN ANY DISTRESS POST EXTUBATION.
[2021-10-04] VITALS (586 sets, daily range): BP systolic 116–140; BP diastolic 90–96; PULSE 88–99; TEMP 37.5; O2SAT 83–100
[2021-10-04 04:12] LABS: HEMOGLOBIN 10.6 g/dl (13.5-18.0); MEAN CELL VOLUME 93 fl (80.0-100.0); MEAN CORPUSCULAR HEMOGLOBIN 31 pg (27-31); MEAN CORPUSCULAR HGB CONC 34 g/dl (33.0-37.0); MEAN PLATELET VOLUME 10.6 fl (7.4-10.4); PLATELET COUNT 226 K/mm3 (130-400); REDCELL DISTRIBUTION WIDTH-CV 11.8 % (11.5-14.5)
[2021-10-04 04:24] LABS: HEMATOCRIT 31.6 % (42.0-52.0)
[2021-10-04 04:27] LABS: CALCIUM 8.3 mg/dL (8.4-10.2); CREATININE, serum 0.71 mg/dL (0.72-1.25); POTASSIUM 3.7 mmol/L (3.5-4.5)
[2021-10-04 04:44] LABS: BAND 5 % (0-10); LYMPHOCYTE 19 % (20.0-51.0); METAMYELOCYTE 2 % (0-0); NEUTROPHILS 59 % (42.0-75.2)
--- NOTE | 2021-10-04 05:11 | NUR ---
PT ALERT TO PERSON, BIRTHDAY, AND PRESIDENT. DID TAKE O2 OFF AT SATS DROP TO MID 80'S. REORIENTED TO SURROUNDINGS. DENIES SOA, 5L O2 PER NC. WEAK COUGH. PT HAS NOT HAD A RESTFUL NIGHT. JOHNSON PATENT AND DRAINING WITH GOOD OUTPUT. LOW GRADE TEMP 99-99.7 DURING SHIFT.
[2021-10-04 05:56] LABS: ARTERIAL BLOOD GAS BASE EXCESS 0.1 (-2-2); ARTERIAL BLOOD GAS PCO2 31.3 mmHg (35-45); ARTERIAL BLOOD GAS PO2 71.4 mmHg (80-100); ARTERIAL BLOOD GAS pH 7.48 (7.35-7.45)
--- NOTE | 2021-10-04 08:00 | NUR ---
Assumed care of PT, all lines, GTTs, tube checked. VSS
--- NOTE | 2021-10-04 09:00 | NUR ---
PT has a moderate strength cough. Placed PT sitting high in bed and let him take a sip of water. Pt has no issue, did not cough and then was able to swallow morning pills without incident.
--- NOTE | 2021-10-04 10:00 | NUR ---
Pt recieved gifts from family including now at bedside: cell phone, watch, [employer] drm consultant,wallet.
--- NOTE | 2021-10-04 12:30 | NUR ---
PT is able to eat food at this time.
--- NOTE | 2021-10-04 18:04 | NUR ---
Called pt report to Brenda KING to room 303.
--- NOTE | 2021-10-04 23:15 | NUR ---
PT ARRIVED TO FLOOR APPROXIMATELY 2000 FROM ICU. PT IS LAYING IN BED, PLEASANT AND COOPERATIIVE. PT DENIES ANY PAIN, JUST STATES HE IS TIRED. PT STATES HE NEEDS TO USE THE RESTROOM. PT IS ASSISTED TO BEDSIDE COMMODE WITH THIS RN AND AIDE HELP WITH GAIT BELT. PT IS WEAK AND UNSTEADY ON FEET. PT IS APOLOGETIC FOR REQUIRING ASSISTANCE. THIS RN AND AIDE REASSURE PATIENT. PT RETURNS TO BED AND EXPRESSES THAT IT TOOK A LOT OF ENERGY FROM HIM. PT IS SCORING 0 ON CIWA, PT EXPRESSES DESIRE TO SLEEP. ALL MEDICATIONS GIVEN, NO OTHER NEEDS AT THIS TIME.
[2021-10-05] VITALS (10 sets, daily range): BP systolic 122–136; BP diastolic 68–88; PULSE 83–99; TEMP 97.6–99.2
--- NOTE | 2021-10-05 06:51 | NUR ---
PT REMAINED PLEASANT ALL NIGHT. PT SLEPT MOST OF NIGHT. PT IS STILL WEAK, REQUIRING UP TO 2X ASSIST TO BEDSIDE COMMODE. PT TOOK ALL MEDICATIONS PRESCRIBED. LAST CIWA SCORE WAS 1 DUE TO HEART RATE OF 91BPM. PT DENIES PAIN, CALL LIGHT IN REACH. NO OTHER NEEDS AT THIS TIME.
--- NOTE | 2021-10-05 08:00 | NUR ---
PT ALERT AND ORIENTED. PT HAS CLEAR LUNGS TO AUSCULTATION, WEAK COUGH NOTED, NONPRODUCTIVE. PT HAS MILD TACHYCARDIA, SCORING 2 ON CIWA THIS 0800 ASSESSMENT. PT HAS 2+ PULSES IN ALL EXTREMITIES, CAP REFILL <3S. PT HAS JOHNSON CATHETER IN, DRAINING CLEAR, YELLOW. PT CALL LIGHT WITHIN REACH.
[2021-10-05 09:34] LABS: ALBUMIN 1.9 gm/dL (3.5-5.0); BILIRUBIN,TOTAL 0.5 mg/dL (0.2-1.2); C-REACTIVE PROTEIN 8.56 mg/dL (0.00-0.50); CALCIUM 8.3 mg/dL (8.4-10.2); CREATININE, serum 0.76 mg/dL (0.72-1.25); POTASSIUM 3.3 mmol/L (3.5-4.5); TOTAL PROTEIN 5.5 gm/dL (6.2-8.1)
[2021-10-05 09:41] LABS: HEMOGLOBIN 11.3 g/dl (13.5-18.0); MEAN CELL VOLUME 92 fl (80.0-100.0); MEAN CORPUSCULAR HEMOGLOBIN 32 pg (27-31); MEAN CORPUSCULAR HGB CONC 34 g/dl (33.0-37.0); MEAN PLATELET VOLUME 11.4 fl (7.4-10.4); PLATELET COUNT 241 K/mm3 (130-400); RED BLOOD COUNT 3.58 M/mm3 (4.20-5.60); REDCELL DISTRIBUTION WIDTH-CV 11.7 % (11.5-14.5)
[2021-10-05 09:42] LABS: HEMATOCRIT 32.9 % (42.0-52.0)
[2021-10-05 10:00] LABS: BAND 8 % (0-10); LYMPHOCYTE 20 % (20.0-51.0); NEUTROPHILS 65 % (42.0-75.2); PLATELET ESTIMATE NORMAL (NORMAL)
--- NOTE | 2021-10-05 11:00 | NUR ---
NOTIFIED DR. SHEEHAN OF PT NEEDING 2L OXYGEN TO MEET OXYGEN DEMANDS.
--- NOTE | 2021-10-05 11:58 | NUR ---
PT ALEX DISCONTINUED, ABLE TO STAND-PIVOT TO BEDSIDE COMMODE.
--- NOTE | 2021-10-05 18:52 | NUR ---
PT CONTINUING ON PLAN OF CARE. PT CIWA SCORING 0-2, NO MEDICATIONS NEEDED. PT ALEX DISCONTINUED THIS SHIFT. PT ABLE TO USE BEDSIDE URINAL. PT VITALS REMAINED STABLE THIS SHIFT. PT PLACED ON OXYGEN THIS SHIFT TO MEET OXYGEN NEEDS, PROVIDER NOTIFIED OF OXYGEN REQUIREMENT. PT CALL LIGHT WITHIN REACH.
--- NOTE | 2021-10-05 23:02 | NUR ---
PT IS PLEASANT AND COOPERATIVE. DENIES PAIN. TOOK ALL MEDICATION PRESCRIBED. LAYING IN BED RESTING. NO OTHER NEEDS AT THIS TIME.
[2021-10-06 05:09] LABS: BASO % 0.2 % (0.0-2.0); EOS % 0.4 % (0.0-4.0); GRAN # 3.3 K/mm3 (1.4-6.5); GRAN % 72.8 % (42.2-75.2); HEMOGLOBIN 12.6 g/dl (13.5-18.0); LYMPH # 0.7 K/mm3 (1.2-3.4); MEAN CELL VOLUME 90 fl (80.0-100.0); MEAN CORPUSCULAR HEMOGLOBIN 31 pg (27-31); MEAN CORPUSCULAR HGB CONC 35 g/dl (33.0-37.0); MEAN PLATELET VOLUME 10.1 fl (7.4-10.4); MONO # 0.5 K/mm3 (0.1-0.6); MONO % 10.5 % (1.7-9.3); PLATELET COUNT 190 K/mm3 (130-400); RED BLOOD COUNT 4.03 M/mm3 (4.20-5.60); REDCELL DISTRIBUTION WIDTH-CV 11.7 % (11.5-14.5)
[2021-10-06 05:14] LABS: HEMATOCRIT 36.3 % (42.0-52.0)
[2021-10-06 05:20] VITALS: BP 147/88; PULSE 88; TEMP 98.2
[2021-10-06 05:24] LABS: CALCIUM 8.3 mg/dL (8.4-10.2); CREATININE, serum 0.72 mg/dL (0.72-1.25)
[2021-10-06 05:30] LABS: POTASSIUM 2.9 mmol/L (3.5-4.5)
--- NOTE | 2021-10-06 06:21 | NUR ---
PT HAD AN OK NIGHT. SEVERAL TIMES DURING CHECKS, PATIENT WAS FOUND TO HAVE OXYGEN OFF. REEDUCATED PATIENT ABOUT NEED FOR OXYGEN AT THIS TIME, PT VERBALIZED UNDERSTANDING, RECEIVED CRITICAL RESULT FOR POTASSIUM, STARTED REPLACEMENT PROTOCOL. PT STATED HE ONLY SLEPT OK THROUGH NIGHT, WAS SLIGHTLY UNCOMFORTABLE IN BED. CALL LIGHT IN REACH, NO OTHER NEEDS.
[2021-10-06 08:00] VITALS: BP 161/97; PULSE 95; TEMP 97.9
--- NOTE | 2021-10-06 08:00 | NUR ---
Patient sitting up in bed watching TV. A&Ox4. VSS 3L NC O2, patient currently has off and desats to 84% on room air. 95% with 3L. Nursing staff instructing patient to continue to wear O2 at all times. Denies pain and discomfort. IV CDI, fluids infusing. Nurse assisted with a bed bath and changing sheets. No further needs expressed. Call light within reach. Droplet/contact precautions in place
[2021-10-06 11:42] VITALS: BP 140/92; PULSE 100; TEMP 98.2
[2021-10-06 16:07] VITALS: BP 129/82; PULSE 97; TEMP 98.4
--- NOTE | 2021-10-06 17:36 | NUR ---
Patient ambulated to the bathroom independently with no O2. Nurse instructed the patient to call for assistance and to keep the NC on at all times. Patient had a loose BM and was SOB and tired. Nurse assisted the patient back to bed and turned on the bed alarm. Patient is A&Ox4. VSS 3L NC O2, SOB with exertion. IV CDI, fluids infusing. Denies pain and discomfort. Droplet/contact precautions in place. Call light within reach. Bed alarm on
[2021-10-06 20:44] VITALS: BP 122/71; PULSE 99; TEMP 101.5
--- NOTE | 2021-10-06 23:00 | NUR ---
AT 1999 VITALS, PT FOUND TO BE FEBRILE AND HYPOGLYCEMIC, TEMPERATURE LOWERED, LINENS TAKEN OFF, OJ PROVIDED, UPON RECHECK BS WNL, PT FEVER SUBSIDING. PT REMAINS DIAPHORETIC. THIS NURSE WILL CONTINUE TO MONITOR.
[2021-10-06 23:33] VITALS: BP 133/88; PULSE 97; TEMP 99.7
[2021-10-07 03:27] VITALS: BP 132/82; PULSE 95; TEMP 100.2
--- NOTE | 2021-10-07 03:41 | NUR ---
TELE ORDERS RECEIVED. PT PLACED ON TELE AT 0335.
--- NOTE | 2021-10-07 06:55 | NUR ---
PT CENTRAL LINE DRESSING CHANGED. PT CONTINUES WITH A LOW GRADE FEVER. THIS NURSE WILL CONTACT HOSPITALIST FOR MEDICATION ORDER. D5/NS INFUSING AT 75 TO RIJ. ALL NEEDS ADDRESSED THIS NIGHT. CALL LIGHT WITHIN REACH.
--- NOTE | 2021-10-07 07:25 | NUR ---
REPORT RECEIVED FROM JUAN C KING, PT DENIES ANY NEEDS AT THIS TIME
[2021-10-07 08:41] VITALS: BP 146/92; PULSE 92; TEMP 97.8
[2021-10-07 08:42] VITALS: BP 146/92; PULSE 92; TEMP 97.8
[2021-10-07 12:38] VITALS: BP 165/104; PULSE 100; TEMP 97.7
[2021-10-07 16:39] VITALS: BP 148/96; PULSE 97; TEMP 98.1
--- NOTE | 2021-10-07 17:03 | NUR ---
Vancomycin Initial Dosing Pharmacy Note Ordering provider: Tiago Trevino MD Indication/duration: Fevers, 7 days LABS: SCr 0.72, CrCl~131, GFR 121 Recommendation: Will give Vancomycin 2 gm IV x1 loading dose, then Vancomycin 1.5 gm IV q8h. Pharmacy will continue to closely monitor and check a Vancomycin trough on 10/09/21. Loading dose: 2 grams Maintenance dose: 1.5 grams every 8 hours Trough goal: 15-20 ug/mL
[2021-10-07 20:02] VITALS: BP 129/92; PULSE 92; TEMP 98.1
[2021-10-07 23:00] LABS: COLLECTION METHOD CLEAN CATCH
--- NOTE | 2021-10-07 23:16 | NUR ---
PT SITTING UP IN BED, ASSESSMENT COMPLETED. PT DENIES PAIN, SOB. PT IS PLEASANT AND COOPERATIVE. NC IN PLACE, NO OTHER NEEDS AT THIS TIME.
[2021-10-07 23:18] LABS: PH 8 (5-8); SQUAMOUS EPITHELIAL None Seen /hpf (0-10); URINE APPEARANCE Clear (CLEAR/HAZY); URINE BACTERIA None Seen /hpf (NONE SEEN); URINE BILIRUBIN Negative (NEGATIVE); URINE BLOOD Negative (NEGATIVE); URINE COLOR Yellow (YELLOW); URINE GLUCOSE 3+ (NEGATIVE); URINE KETONE Trace (NEGATIVE); URINE LEUKOCYTE ESTERASE Negative (NEGATIVE); URINE NITRATE Negative (NEGATIVE); URINE PROTEIN(semi-quant) 1+ (NEGATIVE); URINE RBC None Seen /hpf (0-2); URINE UROBILINOGEN Negative (NEGATIVE)
[2021-10-08] VITALS (7 sets, daily range): BP systolic 133–146; BP diastolic 72–793; PULSE 80–102; TEMP 97.5–99.7
[2021-10-08 06:54] LABS: BASO % 0.2 % (0.0-2.0); EOS % 0.5 % (0.0-4.0); GRAN # 4.8 K/mm3 (1.4-6.5); GRAN % 78.9 % (42.2-75.2); LYMPH # 0.7 K/mm3 (1.2-3.4); LYMPH % 11.7 % (20.0-51.0); MEAN CELL VOLUME 92 fl (80.0-100.0); MEAN CORPUSCULAR HGB CONC 34 g/dl (33.0-37.0); MEAN PLATELET VOLUME 10.6 fl (7.4-10.4); MONO # 0.5 K/mm3 (0.1-0.6); PLATELET COUNT 218 K/mm3 (130-400); RED BLOOD COUNT 3.03 M/mm3 (4.20-5.60); REDCELL DISTRIBUTION WIDTH-CV 11.8 % (11.5-14.5)
[2021-10-08 06:56] LABS: HEMATOCRIT 27.8 % (42.0-52.0); HEMOGLOBIN 9.4 g/dl (13.5-18.0); MEAN CORPUSCULAR HEMOGLOBIN 31 pg (27-31)
[2021-10-08 07:08] LABS: CALCIUM 8.2 mg/dL (8.4-10.2); CREATININE, serum 0.76 mg/dL (0.72-1.25); POTASSIUM 3.7 mmol/L (3.5-4.5)
--- NOTE | 2021-10-08 08:00 | NUR ---
Patient sitting up in bed watching TV. A&Ox4. VSS 2.5L O2, no reported SOB. IV CDI. Denies pain and discomfort. Droplet/contact precautions in place. No further needs expressed. Call light within reach
--- NOTE | 2021-10-08 22:55 | NUR ---
PT IS A&0X4, PLEASANT AND COOPERATIVE. PT DENIES PAIN, OR SOB. PT TOOK ALL MEDICATION, HAS NO COMPLAINTS. SITE WHERE CENTRAL LINE WAS REMOVED IS C/D/I.
[2021-10-09] VITALS (7 sets, daily range): BP systolic 129–139; BP diastolic 69–86; PULSE 80–95; TEMP 98.2–100.1
--- NOTE | 2021-10-09 06:16 | NUR ---
PT HAD AN UNEVENTFUL NIGHT. PT TMAX WAS 99.3. TOOK ALL MEDICATIONS PRESCRIBED, DENIES PAIN AND SOB. PT SLEPT HALF OF NIGHT. CALL LIGHT IN REACH, ALL NEEDS MET.
[2021-10-09 06:56] LABS: BASO % 0.5 % (0.0-2.0); EOS % 0.5 % (0.0-4.0); GRAN % 71.4 % (42.2-75.2); LYMPH # 0.7 K/mm3 (1.2-3.4); LYMPH % 16.3 % (20.0-51.0); MEAN CELL VOLUME 91 fl (80.0-100.0); MEAN CORPUSCULAR HGB CONC 34 g/dl (33.0-37.0); MEAN PLATELET VOLUME 10.2 fl (7.4-10.4); MONO # 0.5 K/mm3 (0.1-0.6); MONO % 10.8 % (1.7-9.3); PLATELET COUNT 248 K/mm3 (130-400); RED BLOOD COUNT 2.93 M/mm3 (4.20-5.60); REDCELL DISTRIBUTION WIDTH-CV 11.5 % (11.5-14.5)
[2021-10-09 06:59] LABS: CALCIUM 8.4 mg/dL (8.4-10.2); CREATININE, serum 0.77 mg/dL (0.72-1.25); POTASSIUM 3.7 mmol/L (3.5-4.5)
[2021-10-09 07:05] LABS: HEMATOCRIT 26.6 % (42.0-52.0); MEAN CORPUSCULAR HEMOGLOBIN 31 pg (27-31)
--- NOTE | 2021-10-09 08:00 | NUR ---
Patient laying in bed with the TV on. A&Ox4. VSS 2L NC O2. No reported SOB. IV CDI. Denies pain and discomfort. Independent in the room. No further needs expressed. Call light within reach. Droplet/contact precautions in place
--- NOTE | 2021-10-09 17:32 | NUR ---
Patient had an uneventful day. Independent in the room. A&Ox4. VSS. IV CDI. Denies pain and discomfort. Droplet/contact precautions in place. No further needs expressed. Call light within reach
--- NOTE | 2021-10-09 22:10 | NUR ---
PT RESTING IN BED. DROPLET ISOLATION CONTINUES. NO RESP DISTRESS. O2 2L N/C.
[2021-10-10 04:00] VITALS: BP 137/70; PULSE 83; TEMP 98.7
[2021-10-10 07:13] LABS: BASO % 0.3 % (0.0-2.0); EOS % 1.3 % (0.0-4.0); GRAN # 1.8 K/mm3 (1.4-6.5); GRAN % 60.2 % (42.2-75.2); LYMPH # 0.7 K/mm3 (1.2-3.4); LYMPH % 23.5 % (20.0-51.0); MEAN CELL VOLUME 91 fl (80.0-100.0); MEAN CORPUSCULAR HGB CONC 34 g/dl (33.0-37.0); MEAN PLATELET VOLUME 10.2 fl (7.4-10.4); MONO # 0.4 K/mm3 (0.1-0.6); MONO % 14.4 % (1.7-9.3); PLATELET COUNT 304 K/mm3 (130-400); RED BLOOD COUNT 2.97 M/mm3 (4.20-5.60); REDCELL DISTRIBUTION WIDTH-CV 11.4 % (11.5-14.5)
[2021-10-10 07:31] LABS: HEMATOCRIT 26.9 % (42.0-52.0); MEAN CORPUSCULAR HEMOGLOBIN 30 pg (27-31)
[2021-10-10 07:36] LABS: CALCIUM 8.9 mg/dL (8.4-10.2); CREATININE, serum 0.8 mg/dL (0.72-1.25); POTASSIUM 4.1 mmol/L (3.5-4.5)
[2021-10-10 07:48] VITALS: BP 120/80; PULSE 79; TEMP 99
--- NOTE | 2021-10-10 08:00 | NUR ---
Patient laying in bed with the TV on. A&Ox4. VSS 2L NC O2, no reported SOB. IV CDI. Denies pain and discomfort. Independent in the room. Droplet/contact precautions in place. No further needs expressed. Call light within reach
[2021-10-10 12:24] VITALS: BP 142/95; PULSE 84; TEMP 98.7
[2021-10-10 16:16] VITALS: BP 124/85; PULSE 82; TEMP 98.7
--- NOTE | 2021-10-10 17:51 | NUR ---
Patient had an uneventful day. A&Ox4. VSS 1L NC O2, no reported SOB. IV CDI, fluids infusing. Denies pain and discomfort. Independent in the room. No further needs expressed. Call light within reach
[2021-10-10 20:00] VITALS: BP 108/66; PULSE 96; TEMP 99.3
--- NOTE | 2021-10-10 21:23 | NUR ---
PT LAYING IN BED FOR ASSESSMENT. PT IS PLEASANT ALERT AND ORIENTATED. PT DENIES PAIN, SOB, N/V/D. PT STATED THAT RT SAID THAT HE MAY NOT EVEN NEED 1 L NC THAT HE IS CURRENTLY ON. PT IS FREE TO TAKE OFF IF HE CHOOSES TO DO SO. PT TOOK ALL MEDICATIONS PRESCRIBED. PT STATES EAGERNESS TO LEAVE, REMINDS NURSE OF NEED FOR WRITTEN PRESCRIPTIONS FOR DISCHARGE DUE TO NO INSURANCE AND NO PHARMACY AT THE TIME. PT ASSESSMENT COMPLETED. PT HAS NO COMPLAINTS AT THIS TIME. IV SITE IS C/D/I, NO FLUIDS INFUSING. CALL LIGHT IN REACH. NO OTHER NEEDS AT THIS TIME.
[2021-10-10 23:31] VITALS: BP 123/85; PULSE 87; TEMP 98.5
--- NOTE | 2021-10-10 23:55 | NUR ---
PER PT REQUEST, WANTED TO TRY BEING ON ROOM AIR. THIS RN AGREEABLE DUE TO STABLE OXGYEN SATURATIONS. PT EDUCATED TO CALL FOR ANY INCREASED SOB.
[2021-10-11 04:34] VITALS: BP 125/84; PULSE 80; TEMP 97.7
--- NOTE | 2021-10-11 05:47 | NUR ---
PT HAD AN UNEVENTFUL NIGHT. PT IS CURRENTLY ON ROOM AIR, DENIES SOB, CHEST PAIN OR ANY PAIN IN GENERAL. PT TOOK ALL MEDICATION PRESCRIBED, REMAINED AFEBRILE. PT HAS CALL LIGHT IN REACH,
[2021-10-11 06:18] LABS: BASO % 0.7 % (0.0-2.0); EOS % 1.4 % (0.0-4.0); GRAN # 1.6 K/mm3 (1.4-6.5); LYMPH # 0.7 K/mm3 (1.2-3.4); LYMPH % 23.8 % (20.0-51.0); MEAN CELL VOLUME 91 fl (80.0-100.0); MEAN CORPUSCULAR HGB CONC 34 g/dl (33.0-37.0); MEAN PLATELET VOLUME 9.7 fl (7.4-10.4); MONO # 0.5 K/mm3 (0.1-0.6); MONO % 16.7 % (1.7-9.3); PLATELET COUNT 377 K/mm3 (130-400); RED BLOOD COUNT 2.99 M/mm3 (4.20-5.60); REDCELL DISTRIBUTION WIDTH-CV 11.3 % (11.5-14.5)
[2021-10-11 06:24] LABS: HEMATOCRIT 27.1 % (42.0-52.0); HEMOGLOBIN 9.2 g/dl (13.5-18.0); MEAN CORPUSCULAR HEMOGLOBIN 31 pg (27-31)
[2021-10-11 06:38] LABS: C-REACTIVE PROTEIN 9.69 mg/dL (0.00-0.50); CALCIUM 9.5 mg/dL (8.4-10.2); CREATININE, serum 0.87 mg/dL (0.72-1.25); MAGNESIUM 1.9 mg/dL (1.6-2.6); POTASSIUM 4.4 mmol/L (3.5-4.5)
[2021-10-11] MEDS ORDERED: KEPPRA 500MG500 MG PO (07:38)
[2021-10-11] MEDS ORDERED: FOLIC ACID 11 MG/TA1 PO (07:39)
[2021-10-11] MEDS ORDERED: THIAMINE 1100 MG/TAB PO (07:39)
[2021-10-11] MEDS ORDERED: CENTRUM 240 ML240 ML PO ×2 (07:39)
--- NOTE | 2021-10-11 08:40 | NUR ---
Pt doing well, hopeful to get to go home. Discussed respiratory increasing his activity and checking his O2 level. Pt has no complaints of pain and is on room air. Breakfast in room
[2021-10-11 08:45] VITALS: BP 124/83; PULSE 85; TEMP 99.1
[2021-10-11] MEDS ORDERED: GLUCOPHAGE1000 MG PO (08:58)
--- NOTE | 2021-10-11 10:00 | NUR ---
Pt doing well, continues to have no pain complaints. Telemetry called, pt heart rate in the 140s. Notified MILTON Menjivar, new orders received. Updated pt on the new orders. Informed him that once EKG is done, if Dr is still okay with discharge, I would remove IV and he could take a shower. Pt has no other questions, call light within reach
--- NOTE | 2021-10-11 11:00 | NUR ---
EKG viewed by Tiara and Dr Trevino. Order to discontinue telemetry and continue with pt discharge. Telemetry notified and pt assisted with getting set up for a shower
[2021-10-11 12:11] VITALS: BP 121/73; PULSE 111; TEMP 98.6
--- NOTE | 2021-10-11 12:30 | NUR ---
Reviewed discharge instructions with pt. Pt reported that he wanted to eat lunch here before leaving, gave insulin and then pts mom called and pt decided to leave. Gave pt crackers and peanut butter to eat prior to him getting some lunch. Prescriptions given via paperwork per pt request. Strongly emphasized picking up the keppra and the metformin. Pt escorted out via wheelchair
== END 2021-10-11 12:30 | disposition home or self-care (01) | DRG 207 ==
LOC: COL.ER 14:20 → ICU 16:14 → MEDICAL 10-04 22:46
PROVIDERS: Emergency Medicine; Internal Medicine; Internal Medicine Critical Care Medicine; Internal Medicine Infectious Disease; Internal Medicine Pulmonary Disease; Physician Assistant; Student in an Organized Health Care Education/Training Program; ADMIT Internal Medicine
PROC: XW033E5 Introduction of Remdesivir Anti-infective into Peripheral Vein, Percutaneous Approach, New Technology Group 5 (ICD-10-PCS; principal; 2021-09-27)
PROC: 5A1955Z Respiratory Ventilation, Greater than 96 Consecutive Hours (ICD-10-PCS; 2021-09-27)
PROC: 0BH17EZ Insertion of Endotracheal Airway into Trachea, Via Natural or Artificial Opening (ICD-10-PCS; 2021-09-27)
PROC: 009U3ZX Drainage of Spinal Canal, Percutaneous Approach, Diagnostic (ICD-10-PCS; 2021-09-30)
DX: U07.1 COVID-19 (principal); E11.10 Type 2 diabetes mellitus with ketoacidosis without coma; J12.82 Pneumonia due to coronavirus disease 2019; G93.41 Metabolic encephalopathy; J69.0 Pneumonitis due to inhalation of food and vomit; J96.00 Acute respiratory failure, unspecified whether with hypoxia or hypercapnia; N17.9 Acute kidney failure, unspecified; E87.0 Hyperosmolality and hypernatremia; F10.139 Alcohol abuse with withdrawal, unspecified; R56.9 Unspecified convulsions; E87.5 Hyperkalemia; Z79.84 Long term (current) use of oral hypoglycemic drugs
CPT/HCPCS: 99232-AI; 99233-AI; 99239; A9585; C9113; J0330; J0610; J0692; J0696; J1100; J1644; J1815; J1953; J2060; J2543; J2704; J3010; J3370; J3411; J3475; J3480; J7030; J7040; J7042; J7050; J7060; J7120